=== PATIENT | male | born 1965 | race Caucasian/White ===

== ENCOUNTER 2018-05-07 18:57 | Emergency (ER) | payer BC ==
[~2018-05-07] VITALS: Ht 180.3 cm; Wt 117.9 kg
[2018-05-07] MEDS ORDERED: CLOB.05TO (19:13)
[2018-05-07] MEDS ORDERED: AMLO5 PO (19:13)
== END 2018-05-07 20:48 | disposition home or self-care (01) ==
LOC: ER 18:57
DX: T18.198A Other foreign object in esophagus causing other injury, initial encounter (principal); Z91.013 Allergy to seafood; Z79.899 Other long term (current) drug therapy
CPT/HCPCS: 70360; 99283-25

== ENCOUNTER 2021-07-20 09:16 | Day surgery (SDC) | payer BC ==
[~2021-07-20] VITALS: Ht 180.3 cm; Wt 116.0 kg
[~2021-07-20 09:16] MED LIST: AMLO5 PO; CLOB.05TO
--- NOTE | 2021-07-20 11:19 | NUR ---
07/20/21 1119 [address] 3-LEAD EKG REVIEWED WITH PHYSICIAN PRIOR TO START OF PROCEDURE. Patient to ENDO 1. History, Chart, Medications and Allergies reviewed before start of procedure. HISTORY,CHART, MEDICATIONS AND ALLERGIES REVIEWED BEFORE START OF PROCEDURE. PATIENT CONFIRMS NPO STATUS AND AGREES WITH SCHEDULED PROCEDURE. 3-LEAD EKG REVIEWED WITH PHYSICIAN PRIOR TO START OF PROCEDURE. MONITOR INTACT WITH CONTINUOUS PULSE OXIMETRY AND INTERMITTENT BP. SUPPLEMENTAL O2 TO BE TITRATED THROUGHOUT PROCEDURE TO MAINTAIN O2 SATURATION ABOVE 90%. PATIENT DETERMINED TO BE ASA APPROPRIATE FOR MODERATE SEDATION PRIOR TO START OF PROCEDURE BY DR. HENRY
--- NOTE | 2021-07-20 12:04 | NUR ---
Discharge instructions reviewed with patient. Patient verbalizes understanding. Copy given to patient to take home. Discharged via wheelchair to private car for ride home.
== END 2021-07-20 12:06 | disposition home or self-care (01) ==
LOC: ORSCMMR 09:16 → ORD 10:00 → ORSCMMR 10:00
PROVIDERS: Internal Medicine Gastroenterology
PROC: 0DJD8ZZ Inspection of Lower Intestinal Tract, Via Natural or Artificial Opening Endoscopic (ICD-10-PCS; principal; 2021-07-20 10:00)
DX: Z12.11 Encounter for screening for malignant neoplasm of colon (principal); K57.30 Diverticulosis of large intestine without perforation or abscess without bleeding; I10 Essential (primary) hypertension; G47.30 Sleep apnea, unspecified; E66.9 Obesity, unspecified; Z68.36 Body mass index [BMI] 36.0-36.9, adult; Z79.899 Other long term (current) drug therapy
CPT/HCPCS: J2250; J3010; J7120